=== PATIENT | male | born 1955 | race Caucasian/White ===

== ENCOUNTER 2025-09-22 06:05 | Observation (INO) ==
[2025-09-22 06:40] LABS: Hematocrit (blood only) 46.0 % (42.0-52.0); Hemoglobin 15.9 g/dL (14.0-18.0); Immature Granulocytes # (auto) 0.03 K/uL (0.01-0.20); Immature Granulocytes % (auto) 0.4 %; Mean Corpuscular Hemoglobin 31.7 pg (25.0-34.0); Mean Corpuscular Volume 91.8 fL (80.0-100.0); Platelet Count 235 K/uL (130-400); RDW Standard Deviation 46.2 fL (36.4-46.3); Red Blood Count 5.01 M/uL (4.70-6.10); White Blood Count 7.50 K/ul (4.8-10.8)
[2025-09-22 07:05] LABS: Alanine Aminotransferase 18.0 U/L (7-52); Albumin Globulin Ratio 1.4 (0.9-2); Albumin Level 4.5 gm/dl (3.4-5.0); Alkaline Phosphatase 60.0 U/L (34-104); Anion Gap 9.0 (3-11); Bilirubin,Total 0.6 mg/dl (0.2-1.0); Blood Urea Nitrogen 24.0 mg/dl (6-23); Calcium 9.1 mg/dl (8.6-10.3); Carbon Dioxide 30.0 mmol/L (21-32); Chloride 100.0 mmol/L (98-107); Creatinine Clr Calc Pharmacy 77.7 ml/min; Globulin 3.2 gm/dl (2.5-4.0); Glucose 106.0 mg/dl (70-99(Fasting)); Lipase 25.0 U/L (11-82); Potassium 4.3 mmol/L (3.5-5.1); Sodium 139.0 mmol/L (136-145); Total Protein 7.7 gm/dl (6.0-8.3)
--- NOTE | 2025-09-22 07:10 | Emergency Department Note ---
History of Present Illness General Chief complaint: Hypertension Stated complaint: HIGH BP 143/70, PALPITATIONS - HX AORTUC ANEURYSM Time Seen by Provider: 09/22/25 06:56 History of Present Illness This is a 70-year-old male who presents to the emergency department via private vehicle with complaints of "soreness in upper back". The patient states that he was diagnosed with diverticulitis several weeks ago and underwent CT scan of the abdomen/pelvis 2 weeks ago. He was placed on prednisone and is currently taking the medicine, last dose was yesterday. However, the patient notes that for just under a week now has had soreness in the upper back and presents today as he notes that he was informed by his lead nuclear medicine technologist in the past that he should be seen with any back pain noting history of aneurysm. Patient believes the aneurysm is in the chest area. He denies any central chest pain. No dyspnea. No exertional symptoms. He does note that the upper back pain is made worse by physical movements of the arms/muscles of the back and is better with rest. No preceding or current illness other than the diverticulitis which has resolved. The patient does state that while on the prednisone he did have some heart racing sensation. He checked his blood pressure yesterday and it was elevated. Home Medications Medication Instructions Recorded Confirmed Type atorvastatin 40 mg tablet 40 mg PO DAILY 09/22/25 09/22/25 History lisinopril 2.5 mg tablet 2.5 mg PO DAILY 09/22/25 09/22/25 History metformin 500 mg tablet,extended 500 mg PO DAILY 09/22/25 09/22/25 History release 24 hr metoprolol succinate 25 mg 25 mg PO DAILY 09/22/25 09/22/25 History tablet,extended release 24 hr prednisone 20 mg tablet 40 mg PO QAM 09/22/25 09/22/25 History Allergies Allergy/AdvReac Type Severity Reaction Status Date / Time No Known Allergies Allergy Unknown Unverified 05/25/18 01:56 Past Med/Surg History Problem List (Updated 09/22/25 @ 09:09 by Vladimir Ramon PA-C) Aneurysm, thoracic aortic (Acute) Upper back pain (Acute) Neck pain (Acute) Pharyngitis (Acute) Chest pain (Acute) Thoracic aortic aneurysm (Acute) Family History (Updated 07/08/18 @ 03:22 by Keven Ivy) Other No significant family history Social History (Updated 07/08/18 @ 03:46 by Keven Ivy) Smoking Status: Former smoker Preferred Language: Bulgarian Visual Impairment: No Limitations Hearing Ability: Normal Feels Safe at Home: Yes Review of Systems A total of 10 systems reviewed and were otherwise negative Physical Exam Vital Signs Vital Signs - 24 hr 09/22/25 06:09 09/22/25 06:17 09/22/25 07:42 Temperature 36.8 C Temperature Source Temporal Artery Scan Pulse Rate 66 58 L Pulse Rate [Apical] 69 Pulse Rhythm [Apical] Regular Respiratory Rate 20 20 Respiratory Effort / Characteristics Non-Labored Spontaneous Respiratory Depth Normal Normal Blood Pressure 168/88 H Blood Pressure [Right Arm] 162/88 H Blood Pressure Mean 114 Blood Pressure Mean [Right Arm] 112 Pulse Oximetry 95 95 Oxygen Delivery Method Room Air Room Air Sepsis Recent Fever Within 48 Hours No Sepsis New/Unexplained Change in Mental Status N/A Sepsis Action Taken by Nursing No Action Required 09/22/25 07:44 09/22/25 08:35 09/22/25 10:34 Temperature Temperature Source Pulse Rate Pulse Rate [Apical] 59 L 59 L 57 L Pulse Rhythm [Apical] Respiratory Rate 18 20 20 Respiratory Effort / Characteristics Non-Labored Respiratory Depth Normal Normal Normal Blood Pressure Blood Pressure [Right Arm] 148/89 H 129/81 129/81 Blood Pressure Mean Blood Pressure Mean [Right Arm] 108 97 97 Pulse Oximetry 94 95 95 Oxygen Delivery Method Room Air Room Air Room Air Sepsis Recent Fever Within 48 Hours Sepsis New/Unexplained Change in Mental Status Sepsis Action Taken by Nursing VITAL SIGNS - Vital signs and nursing notes were reviewed. Hypertensive, otherwise stable and afebrile. GENERAL -70-year-old male appearing his stated age who is in no acute distress. Communicates well with provider and answers questions appropriately. SKIN - Without rashes. No meningeal or petechial rash. No herpetic lesions. The skin overlying the back is unremarkable. HEAD - NC/AT. NECK - Neck with FROM.No nuchal rigidity. LUNGS - CTA CARDIAC - RRR ABDOMEN - Abdominal contour normal without pulsations or visible masses. BS normoactive all four quadrants. No tenderness, palpable masses, hepatosplenomegaly, or ascites noted. EXTREMITIES - No clubbing or peripheral cyanosis. No pretibial edema present. Pulses wnl bilat. +5/5 strength noted in UE/LE bilaterally. NEUROLOGIC - Cranial nerves II through XII grossly intact. PSYCH -alert, oriented and pleasant on exam Course Administered Medications Discontinued Medications Ioversol (Optiray 320 125ml) 120 ml IV ONCE ONE Stop: 09/22/25 07:58 Last Admin: 09/22/25 07:57 Dose: 120 ml Documented By: MERVIN Medical Decision Making Laboratory Data 09/22/25 06:19 09/22/25 06:19 Lab Results 09/22/25 Range/Units 06:19 WBC 7.50 (4.8-10.8) K/ul RBC 5.01 (4.70-6.10) M/uL Hgb 15.9 (14.0-18.0) g/dL Hct 46.0 (42.0-52.0) % MCV 91.8 (80.0-100.0) fL MCH 31.7 (25.0-34.0) pg MCHC 34.6 (32.0-36.0) g/dL RDW Std Deviation 46.2 (36.4-46.3) fL RDW Coeff of Tom 13.5 (11.5-14.5) % Plt Count 235 (130-400) K/uL MPV 11.3 (9.4-12.4) fL Immature Gran % (Auto) 0.4 % Neut % (Auto) 67.6 % Lymph % (Auto) 17.6 % [place] % (Auto) 8.9 % Eos % (Auto) 4.8 % Baso % (Auto) 0.7 % Neut # (Auto) 5.07 (1.40-6.50) K/uL Lymph # (Auto) 1.32 (1.20-3.40) K/uL [place] # (Auto) 0.67 H (0.11-0.59) K/uL Eos # (Auto) 0.36 (0.00-0.50) K/uL Baso # (Auto) 0.05 (0.00-0.20) K/uL Immature Gran # (Auto) 0.03 (0.01-0.20) K/uL D-Dimer 690 H* (0-500) ug/L FEU Sodium 139 (136-145) mmol/L Potassium 4.3 (3.5-5.1) mmol/L Chloride 100 (98-107) mmol/L Carbon Dioxide 30 (21-32) mmol/L Anion Gap 9 (3-11) BUN 24 H (6-23) mg/dl Creatinine 1.00 (0.6-1.4) mg/dl Est Cr Clr Drug Dosing 77.7 ml/min eGFR 81.47 BUN/Creatinine Ratio 24.0 H (10-20) Glucose 106 H (70-99(Fasting)) mg/dl Calcium 9.1 (8.6-10.3) mg/dl Total Bilirubin 0.6 (0.2-1.0) mg/dl AST 16 (13-39) U/L ALT 18 (7-52) U/L Alkaline Phosphatase 60 (34-104) U/L Troponin I High Sens 10.5 (0-20) pg/ml Total Protein 7.7 (6.0-8.3) gm/dl Albumin 4.5 (3.4-5.0) gm/dl Globulin 3.2 (2.5-4.0) gm/dl Albumin/Globulin Ratio 1.4 (0.9-2) Lipase 25 (11-82) U/L Imaging Data Radiologist's Impression: Abdomen/Pelvis CTA 09/22/25 06:20 CT angio chest dissec wo/w con, CT angio abdomen pelvis w con CLINICAL HISTORY: upper back pain, hx aneurysm COMPARISON STUDY: None FINDINGS: Vascular findings: There is an ascending thoracic aortic aneurysm measuring 4.8 cm maximum diameter, narrowing smoothly to caliber of 3.0 cm at the proximal descending thoracic aorta and 2.8 cm at the hiatus. There are mild diffuse atherosclerotic calcifications at the aorta. There is no thoracic or abdominal aortic dissection. There is no abdominal aortic aneurysm. Visualized great vessels are widely patent. Celiac, superior mesenteric, bilateral renal, and inferior mesenteric arteries are patent. Visualized arterial outflow shows no significant narrowing. CHEST: There is no pulmonary consolidation or pleural effusion. No pneumothorax. No pulmonary embolism. No enlarged adenopathy. No pericardial effusion. ABDOMEN: Liver, gallbladder, spleen, pancreas, and adrenal glands are unremarkable. Kidneys show no hydronephrosis. There are a few tiny cysts at the kidneys. Pelvis: Prostate is mildly enlarged. Urinary bladder is nondistended. There is sigmoid diverticulosis. No acute diverticulitis. No bowel dilation or obstruction. No free fluid or free air. No enlarged adenopathy. Osseous structures: There is lower lumbar degenerative disc disease. There are mild degenerative changes at both hips. No acute osseous findings seen. IMPRESSION: 1. No evidence of thoracic or abdominal aortic dissection. 2. Mild ascending thoracic aortic aneurysm. 3. No acute findings seen. 4. Otherwise as described. ACT 112: Negative or not required by law. Electronically signed by: Jefferson Maharaj M.D. 09/22/2025 8:29 AM Chest X-Ray 09/22/25 06:20 EXAM: XR chest 1V portable CLINICAL HISTORY: Chest pain, nonspecific TECHNIQUE: An X-ray image of the chest is obtained in AP projection. COMPARISON: No prior studies are available for comparison. FINDINGS: Pulmonary Parenchyma: Slightly prominent bronchovascular markings in the lung weldon involving the suprahilar region as well, likely suggests mild congestive changes. No evidence of consolidation, collapse, No pulmonary nodules are identified. No evidence of pleural effusion or pleural thickening. Heart and Mediastinum: Possbile cardiomegaly. No mediastinal masses. No hilar or mediastinal lymphadenopathy. Bony Thorax: Bony thorax appears intact without fractures or deformities. Soft Tissues: Soft tissues overlying the chest wall are unremarkable. IMPRESSION: 1. Mild to minimal cardiomegaly. 2. Slightly prominent bronchovascular markings in the lung weldon involving the suprahilar region as well, likely suggests mild congestive changes. 3. No pleural effusion seen. 4. Clinical correlation advised. Electronically signed by Giovanny Child 09-22-2025 07:33 AM Chest CTA 09/22/25 07:18 CT angio chest dissec wo/w con, CT angio abdomen pelvis w con CLINICAL HISTORY: upper back pain, hx aneurysm COMPARISON STUDY: None FINDINGS: Vascular findings: There is an ascending thoracic aortic aneurysm measuring 4.8 cm maximum diameter, narrowing smoothly to caliber of 3.0 cm at the proximal descending thoracic aorta and 2.8 cm at the hiatus. There are mild diffuse atherosclerotic calcifications at the aorta. There is no thoracic or abdominal aortic dissection. There is no abdominal aortic aneurysm. Visualized great vessels are widely patent. Celiac, superior mesenteric, bilateral renal, and inferior mesenteric arteries are patent. Visualized arterial outflow shows no significant narrowing. CHEST: There is no pulmonary consolidation or pleural effusion. No pneumothorax. No pulmonary embolism. No enlarged adenopathy. No pericardial effusion. ABDOMEN: Liver, gallbladder, spleen, pancreas, and adrenal glands are unremarkable. Kidneys show no hydronephrosis. There are a few tiny cysts at the kidneys. Pelvis: Prostate is mildly enlarged. Urinary bladder is nondistended. There is sigmoid diverticulosis. No acute diverticulitis. No bowel dilation or obstruction. No free fluid or free air. No enlarged adenopathy. Osseous structures: There is lower lumbar degenerative disc disease. There are mild degenerative changes at both hips. No acute osseous findings seen. IMPRESSION: 1. No evidence of thoracic or abdominal aortic dissection. 2. Mild ascending thoracic aortic aneurysm. 3. No acute findings seen. 4. Otherwise as described. ACT 112: Negative or not required by law. Electronically signed by: Jefferson Maharaj M.D. 09/22/2025 8:29 AM MDM Narrative Patient was seen and evaluated as above in room B04b. Review was performed of triage nursing notes and vital signs. I did review pertinent previous visits and patient history. After obtaining a thorough history and physical examination the above work up was performed. Patient presents to us today with upper back soreness and palpitations/pounding in the chest sensation. No chest pain. Well-appearing and nontoxic on assessment. Stable vital signs other than hypertension noted. IV access was established per labs were drawn. EKG: Per my interpretation dated 09/22/2025 at 0615, normal sinus rhythm at a rate of 60 bpm. QTc 408. QRS 112. No ST elevation. T wave inversions noted. The previous EKG for comparison is dated December 19, 2003. Plan is to repeat EKG here. Repeat EKG timestamp 0902 per my interpretation reveals sinus bradycardia at a rate of 58 bpm. QTc 435. QRS 116. No ST elevation. This is a similar rhythm tracing compared to 0615 EKG today. Labs reveal no leukocytosis or concerning anemia. D-dimer 690. No evidence of emergent kidney or liver failure. Troponin x 1 negative. Lipase normal. Chest x-ray as above. He does have a known ascending thoracic aortic aneurysm. CT angio study here of the chest, abdomen/pelvis performed. As above. No dissection. 4.8 cm aneurysm noted. As a comparison, I was able to review previous imaging as documented at [employer] dated 02/28/24. This showed aneurysmal dilatation of the ascending thoracic aorta measuring up to 4.8 cm at that time was unchanged compared to previous. I was also able to review an echocardiogram performed on 01/22/2025 which showed a moderately dilated ascending aorta at 4.4 cm by ultrasound. Presentation is not felt to be related to the aneurysm at this time. The patient does have stable EKG here x 2 but new findings compared to most recent that we able to find in the EMR which was December 19, 2003. [id number] spoke with Dr. Good, cardiology. We discussed options. I discussed options with the patient. Ultimately we decided to proceed with further evaluation and management in the inpatient setting. Case discussed with the hospitalist service. Please refer to further documentation regarding his stay. In the evaluation and treatment of this patient, the following differential diagnoses were considered: DE, ASC, Dysrhythmia, Angina, Mediastinitis, GERD, Esophagitis, PE, Pneumonia, Bronchitis, Costochondritis, Rib Fracture, Zoster, among others. Impression & Plan Upper back pain, Aneurysm, thoracic aortic Discharge Plan Visit Data Chief Complaint: Hypertension Stated Complaint: HIGH BP 143/70, PALPITATIONS - HX AORTUC ANEURYSM ED Provider: Leonid Gray ED Midlevel Provider: Vladimir Ramon Discharge Problem: Upper back pain, Aneurysm, thoracic aortic Patient Disposition: Admitted As Inpatient Condition: Good Forms Stand Alone Forms: My [facility], Important Visit Information Prescriptions Prescriptions: No Action prednisone 20 mg tablet 40 mg PO QAM Patient Comments: prescribed for 7 days, last dose 09/21 metoprolol succinate 25 mg tablet extended release 24 hr 25 mg PO DAILY metformin 500 mg tablet extended release 24 hr 500 mg PO DAILY lisinopril 2.5 mg tablet 2.5 mg PO DAILY atorvastatin 40 mg tablet 40 mg PO DAILY Referrals Referrals: Mirza Jones DO [Primary Care Provider] -
--- NOTE | 2025-09-22 07:33 | XRay Report ---
EXAM: XR chest 1V portable CLINICAL HISTORY: Chest pain, nonspecific TECHNIQUE: An X-ray image of the chest is obtained in AP projection. COMPARISON: No prior studies are available for comparison. FINDINGS: Pulmonary Parenchyma: Slightly prominent bronchovascular markings in the lung weldon involving the suprahilar region as well, likely suggests mild congestive changes. No evidence of consolidation, collapse, No pulmonary nodules are identified. No evidence of pleural effusion or pleural thickening. Heart and Mediastinum: Possbile cardiomegaly. No mediastinal masses. No hilar or mediastinal lymphadenopathy. Bony Thorax: Bony thorax appears intact without fractures or deformities. Soft Tissues: Soft tissues overlying the chest wall are unremarkable. IMPRESSION: 1. Mild to minimal cardiomegaly. 2. Slightly prominent bronchovascular markings in the lung weldon involving the suprahilar region as well, likely suggests mild congestive changes. 3. No pleural effusion seen. 4. Clinical correlation advised. Electronically signed by Giovanny Child 09-22-2025 07:33 AM
[2025-09-22] MEDS: OPTIRAY 320 125ml IV ONE (07:57)
--- NOTE | 2025-09-22 08:31 | CT Scan Report ---
CT angio chest dissec wo/w con, CT angio abdomen pelvis w con CLINICAL HISTORY: upper back pain, hx aneurysm COMPARISON STUDY: None FINDINGS: Vascular findings: There is an ascending thoracic aortic aneurysm measuring 4.8 cm maximum diameter, narrowing smoothly to caliber of 3.0 cm at the proximal descending thoracic aorta and 2.8 c m at the hiatus. There are mild diffuse atherosclerotic calcifications at the aorta. There is no thor acic or abdominal aortic dissection. There is no abdominal aortic aneurysm. Visualized great vessels are widely patent. Celiac, superior mesenteric, bilateral renal, and inferior mesenteric arteries are patent. Visualized arterial outflow shows no significant narrowing. CHEST: There is no pulmonary consolidation or pleural effusion. No pneumothorax. No pulmonary embolis m. No enlarged adenopathy. No pericardial effusion. ABDOMEN: Liver, gallbladder, spleen, pancreas, and adrenal glands are unremarkable. Kidneys show no h ydronephrosis. There are a few tiny cysts at the kidneys. Pelvis: Prostate is mildly enlarged. Urinary bladder is nondistended. There is sigmoid diverticulosis . No acute diverticulitis. No bowel dilation or obstruction. No free fluid or free air. No enlarged a denopathy. Osseous structures: There is lower lumbar degenerative disc disease. There are mild degenerative ghosh ges at both hips. No acute osseous findings seen. IMPRESSION: 1. No evidence of thoracic or abdominal aortic dissection. 2. Mild ascending thoracic aortic aneurysm. 3. No acute findings seen. 4. Otherwise as described. ACT 112: Negative or not required by law. Electronically signed by: Jefferson Maharaj M.D. 09/22/2025 8:29 AM
--- NOTE | 2025-09-22 09:10 | Emergency Department Note ---
ED Visit Note I had a meaningful discussion with the PA regarding patient. Though I did not see the patient face to face, I personally approved and/or made the documented management plan and acknowledge risk and complications. .
--- NOTE | 2025-09-22 11:23 | History & Physical Report ---
<Statement entered by Jarett French, DO - 09/22/25 14:43> patient seen and examined Feeling well no complaints at this time CTA reviewed, no PE Continue telemetry tonight Appreciate cardio input Anticipate DC home tomorrow Date of Service September 22, 2025 Assessment & Plan (1) Palpitations: (2) Aneurysm of ascending aorta without rupture: Plan Patient is a 70y/o M with PMHx significant for thyroid nodule, DMII, HLD, pulmonary emphysema, aneurysm of ascending aorta without rupture, HTN, CAD, aortic valve regurgitation, diverticulosis, osteoarthritis, mild cerebral atrophy and history of TIA who presented to the ED with c/o heart palpitations and upper back pain. Known history of an aneurysm of the ascending aorta. Follows with [facility] cardiothoracic surgery for monitoring. CT chest without contrast in February 2024 measuring 4.6cm maximum diameter, previously was 4.3cm maximum diameter in April 2015. Under observation. Last seen by cardiothoracic surgery in September 2024. Scheduled for repeat chest CT imaging in February 2026. Palpitations Ascending thoracic aortic aneurysm without rupture POA Telemetry benign, HS-troponin x 2 negative. EKG with indeterminate T wave inversions in the lateral leads, questionable L anterior fascicular block (appears new). Pt without chest pain. Repeat EKG in AM, check updated TTE. Prior TTE, 12/2024: EF 55-60%, normal LV wall motion, mild AVR, moderately dilated ascending aorta (4.4cm). D-dimer elevated however chest CTA negative for PE. Abd/pelv and chest CTA imaging without evidence of thoracic or abdominal aortic dissection. -Ascending thoracic aortic aneurysm measuring 4.8cm maximum diameter (change of 2mm since February 2024). HR and BP currently well-controlled. Will monitor on telemetry overnight, follow troponin trend. Reevaluate in AM. Check TSH with reflex T4. Cardiology onboard, plan discussed with cardiology LEILA in ED: -If remains stable through tomorrow, could then consider OP stress testing which cardiology can assist with coordinating. If pt is having significant palpitation episodes and/or any acute changes overnight, will then consider inpatient stress testing on Wednesday (09/24) as this cannot be completed over the weekend. Renal cysts Noted on abd/pelv CTA: There are a few tiny cysts at the kidneys. Renal function stable, continue to monitor. Recommend routine (nonurgent) OP renal US for further eval -- can be arranged with PCP. DMII A1c 6.6% 1 mo ago, well-controlled on metformin. SSI protocol while inpatient. Monitor BSG checks ACHS. HTN Strive for goal BP <140/90 in setting of known ascending thoracic AA. Continue BB, lisinopril with routine BP checks. HLD, CAD Continue statin therapy. Update fasting lipid panel in AM. DVT Prophylaxis: SCDs/TEDs, SQ Lovenox Code Status: FULL CODE Disposition: Observation in med/telemetry Patient seen in collaboration with Dr. French. Please see addendum. I spent a total of 60 minutes coordinating, documenting, and providing care for this patient excluding time spent in the performance of separately billed services or time spent by another provider/QHP. This included personally reviewing all current laboratories and imaging studies, medical reconciliation, outpatient chart review and discussion with specialists. History of Present Illness Chief Complaint: Palpitations, upper back pain Primary Care Provider: Mirza Jones DO Patient is a 70y/o M with PMHx significant for thyroid nodule, DMII, HLD, pulmonary emphysema, aneurysm of ascending aorta without rupture, HTN, CAD, aortic valve regurgitation, diverticulosis, osteoarthritis, mild cerebral atrophy and history of TIA who presented to the ED with c/o heart palpitations and upper back pain. Recently started on oral prednisone course for a suspected herniated disc in his back by his PCP. Started to develop palpitations after starting the prednisone. Discontinued the prednisone on because of this. Only took about 3 or 4 days' worth of prednisone. Has still been experiencing heart palpitations several times a day, primarily at rest, since stopping the prednisone. No chest pain or SOB with this. Also noticed that his BP was mildly elevated over the past few days. No recent changes to antiHTN regimen. Did not take any of his medications this morning. Has still be experiencing some mild upper back pain, described as achy and dull. Known history of an aneurysm of the ascending aorta. Follows with [facility] cardiothoracic surgery for monitoring. CT chest without contrast in February 2024 measuring 4.6cm maximum diameter, previously was 4.3cm maximum diameter in April 2015. Under observation. Last seen by cardiothoracic surgery in September 2024. Scheduled for repeat chest CT in February 2026. Allergies Allergy/AdvReac Type Severity Reaction Status Date / Time No Known Allergies Allergy Unknown Unverified 05/25/18 01:56 Home Medications Medication Instructions Recorded Confirmed Type atorvastatin 40 mg tablet 40 mg PO DAILY 09/22/25 09/22/25 History lisinopril 2.5 mg tablet 2.5 mg PO DAILY 09/22/25 09/22/25 History metformin 500 mg tablet,extended 500 mg PO DAILY 09/22/25 09/22/25 History release 24 hr metoprolol succinate 25 mg 25 mg PO DAILY 09/22/25 09/22/25 History tablet,extended release 24 hr prednisone 20 mg tablet 40 mg PO QAM 09/22/25 09/22/25 History Past Med/Surg History Problem List Aneurysm of ascending aorta without rupture Palpitations Aneurysm, thoracic aortic (Acute) Upper back pain (Acute) Neck pain (Acute) Pharyngitis (Acute) Chest pain (Acute) Thoracic aortic aneurysm (Acute) Family History Other No significant family history Social History Smoking Status: Former smoker Preferred Language: Kyrgyz Visual Impairment: No Limitations Hearing Ability: Normal Feels Safe at Home: Yes Review of Systems Review of Systems: At least ten systems reviewed and negative, except as noted in the HPI. Physical Exam Physical Exam: General: WD/WN, M, NAD, sitting up in bed, A&Ox3 HEENT: Normocephalic, atraumatic, moist mucous membranes Respiratory: Normal respiratory effort, CTAB Cardiovascular: RRR, no BLE edema Abdomen/GI: Active bowel sounds, soft, nontender to palpation in all quadrants Extremities/Musculoskeletal: No cyanosis or clubbing, extremities motor strength intact, moves all extremities Neurologic: No overt focal deficits, CN's II-XI not formally tested but appear grossly intact bilaterally Results & Data Results & Data Vital Signs (Past 12 Hours) Vital Signs Temp Pulse Pulse Resp BP BP Pulse Ox 09/22/25 10:34 57 L 20 129/81 95 09/22/25 08:35 59 L 20 129/81 95 09/22/25 07:44 59 L 18 148/89 H 94 09/22/25 07:42 58 L 09/22/25 06:17 69 20 162/88 H 95 09/22/25 06:09 36.8 C 66 20 168/88 H 95 O2 Del Method 09/22/25 10:34 Room Air 09/22/25 08:35 Room Air 09/22/25 07:44 Room Air 09/22/25 07:42 09/22/25 06:17 Room Air 09/22/25 06:09 Room Air Laboratory Results Short CBC 09/22/25 Range/Units 06:19 WBC 7.50 (4.8-10.8) K/ul Hgb 15.9 (14.0-18.0) g/dL Hct 46.0 (42.0-52.0) % Plt Count 235 (130-400) K/uL BMP 09/22/25 06:19 Sodium 139 Potassium 4.3 Chloride 100 Carbon Dioxide 30 BUN 24 H Creatinine 1.00 Glucose 106 H Calcium 9.1 Liver Function 09/22/25 Range/Units 06:19 Total Bilirubin 0.6 (0.2-1.0) mg/dl AST 16 (13-39) U/L ALT 18 (7-52) U/L Alkaline Phosphatase 60 (34-104) U/L Albumin 4.5 (3.4-5.0) gm/dl Diagnostic Findings Abdomen/Pelvis CTA 09/22/25 06:20 CT angio chest dissec wo/w con, CT angio abdomen pelvis w con CLINICAL HISTORY: upper back pain, hx aneurysm COMPARISON STUDY: None FINDINGS: Vascular findings: There is an ascending thoracic aortic aneurysm measuring 4.8 cm maximum diameter, narrowing smoothly to caliber of 3.0 cm at the proximal descending thoracic aorta and 2.8 cm at the hiatus. There are mild diffuse atherosclerotic calcifications at the aorta. There is no thoracic or abdominal aortic dissection. There is no abdominal aortic aneurysm. Visualized great vessels are widely patent. Celiac, superior mesenteric, bilateral renal, and inferior mesenteric arteries are patent. Visualized arterial outflow shows no significant narrowing. CHEST: There is no pulmonary consolidation or pleural effusion. No pneumothorax. No pulmonary embolism. No enlarged adenopathy. No pericardial effusion. ABDOMEN: Liver, gallbladder, spleen, pancreas, and adrenal glands are unremarkable. Kidneys show no hydronephrosis. There are a few tiny cysts at the kidneys. Pelvis: Prostate is mildly enlarged. Urinary bladder is nondistended. There is sigmoid diverticulosis. No acute diverticulitis. No bowel dilation or obstruction. No free fluid or free air. No enlarged adenopathy. Osseous structures: There is lower lumbar degenerative disc disease. There are mild degenerative changes at both hips. No acute osseous findings seen. IMPRESSION: 1. No evidence of thoracic or abdominal aortic dissection. 2. Mild ascending thoracic aortic aneurysm. 3. No acute findings seen. 4. Otherwise as described. ACT 112: Negative or not required by law. Electronically signed by: Jefferson Maharaj M.D. 09/22/2025 8:29 AM Chest X-Ray 09/22/25 06:20 EXAM: XR chest 1V portable CLINICAL HISTORY: Chest pain, nonspecific TECHNIQUE: An X-ray image of the chest is obtained in AP projection. COMPARISON: No prior studies are available for comparison. FINDINGS: Pulmonary Parenchyma: Slightly prominent bronchovascular markings in the lung weldon involving the suprahilar region as well, likely suggests mild congestive changes. No evidence of consolidation, collapse, No pulmonary nodules are identified. No evidence of pleural effusion or pleural thickening. Heart and Mediastinum: Possbile cardiomegaly. No mediastinal masses. No hilar or mediastinal lymphadenopathy. Bony Thorax: Bony thorax appears intact without fractures or deformities. Soft Tissues: Soft tissues overlying the chest wall are unremarkable. IMPRESSION: 1. Mild to minimal cardiomegaly. 2. Slightly prominent bronchovascular markings in the lung weldon involving the suprahilar region as well, likely suggests mild congestive changes. 3. No pleural effusion seen. 4. Clinical correlation advised. Electronically signed by Giovanny Child 09-22-2025 07:33 AM Chest CTA 09/22/25 07:18 CT angio chest dissec wo/w con, CT angio abdomen pelvis w con CLINICAL HISTORY: upper back pain, hx aneurysm COMPARISON STUDY: None FINDINGS: Vascular findings: There is an ascending thoracic aortic aneurysm measuring 4.8 cm maximum diameter, narrowing smoothly to caliber of 3.0 cm at the proximal descending thoracic aorta and 2.8 cm at the hiatus. There are mild diffuse atherosclerotic calcifications at the aorta. There is no thoracic or abdominal aortic dissection. There is no abdominal aortic aneurysm. Visualized great vessels are widely patent. Celiac, superior mesenteric, bilateral renal, and inferior mesenteric arteries are patent. Visualized arterial outflow shows no significant narrowing. CHEST: There is no pulmonary consolidation or pleural effusion. No pneumothorax. No pulmonary embolism. No enlarged adenopathy. No pericardial effusion. ABDOMEN: Liver, gallbladder, spleen, pancreas, and adrenal glands are unremarkable. Kidneys show no hydronephrosis. There are a few tiny cysts at the kidneys. Pelvis: Prostate is mildly enlarged. Urinary bladder is nondistended. There is sigmoid diverticulosis. No acute diverticulitis. No bowel dilation or obstruction. No free fluid or free air. No enlarged adenopathy. Osseous structures: There is lower lumbar degenerative disc disease. There are mild degenerative changes at both hips. No acute osseous findings seen. IMPRESSION: 1. No evidence of thoracic or abdominal aortic dissection. 2. Mild ascending thoracic aortic aneurysm. 3. No acute findings seen. 4. Otherwise as described. ACT 112: Negative or not required by law. Electronically signed by: Jefferson Maharaj M.D. 09/22/2025 8:29 AM Medications Administered Discontinued Medications Ioversol (Optiray 320 125ml) 120 ml IV ONCE ONE Stop: 09/22/25 07:58 Last Admin: 09/22/25 07:57 Dose: 120 ml Documented By: MERVIN
[2025-09-22] MEDS ORDERED: DEXTROSE 50% 50 ML SYRINGE IV PRN (11:33)
[2025-09-22] MEDS ORDERED: GLUCAGON FOR INJ 1 MG VIAL SQ PRN (11:33)
[2025-09-22] MEDS ORDERED: GLUCOSE 40% GEL 15 GM TUBE PO PRN (11:33)
[2025-09-22] MEDS ORDERED: GLUCOSE 10 TAB/TUBE PO PRN (11:33)
[2025-09-22] MEDS ORDERED: CARBOHYDRATES FOR HYPOGLYCEMIA PO PRN (11:33)
--- NOTE | 2025-09-22 13:18 | Cardiology Consultation ---
Date of Consultation September 22, 2025 Assessment & Plan (1) Aneurysm, thoracic aortic: (2) Palpitations: (3) Upper back pain: Plan -HR and BP currently well controlled -troponins have been negative -echo completed 12/2024 with normal EF and no valvular disease, no need to repeat at this time -CT scan today indicated stable measurements of his Aortic Aneurysm -cannot complete stress testing today - At this juncture the patient's symptoms have resolved - Continue atorvastatin, lisinopril, Toprol - Can monitor on telemetry overnight and reevaluate tomorrow - If blood pressure and heart rate remain well-controlled without any acute changes could consider outpatient stress testing which I can assist with coordinating -if he is still having significant episodes or any acute changes overnight could also consider continuing to monitor him through the weekend and completing an inpatient stress test on Wednesday - I discussed my recommendations with the attending service and the patient who are agreeable with plan Case discussed with Dr. Good. Please see attestation for additional recommendations. ZAIRE Rockwell Department of Cardiology, [facility] This chart was completed in part utilizing Speech Voice Recognition Software. Grammatical errors, random word insertions, pronoun errors, and incomplete sentences are an occasional consequence of this system due to software limitations, ambient noise, and hardware issues. Any formal questions or jeffrey rns about the content, text, or information contained within the body of this dictation should be directly addressed to the provider for clarification. Supervising Physician Co-Signing Physician Notes Patient seen and examined. Past medical history, surgical history, social history and family history have been reviewed. The medical record and all the above studies have been reviewed. Case DW LEILA including management. Patient had high salt load in his food intake the past few days including items such as ham. Patient was found to be hypertensive on presentation IMP: HTN - uncontrolled -> better Palpitations Atypical CP - AL R/O Thoracic aortic aneurysm Upper back pain Recommendations: continue telemetry monitoring adjust anti-HTN meds keeping systolic BP between 100-140 mmHg DVT prophylaxis salt restriction counseling Pharmacological nuclear stress test DW patient -> will schedule as per clinical course -> he agrees History of Present Illness Reason for Consultation: Palpitations, Back Pain Requesting Physician: Hospitalist Attending Physician: Dr. French History of Present Illness 70-year-old male seen in consultation today in regard to back pain and palpitations. A few weeks ago he was diagnosed with diverticulitis and underwent outpatient management with prednisone. Also was told by his PCP that he likely had some back issues that the prednisone might help as well. He finished the prednisone just under 2 days ago and noted that over the course of the last week he has been noticing some palpitations occurring daily. He is not sure what causes them to come on or what alleviates them but feels that they are occurring several times a day. Was not able to elaborate further but feels his heart beating during these episodes. He did notice yesterday when he had a family member check his blood pressure was mildly elevated in the 160s but on recheck it had come down to the 130s.. At home he used an automatic blood pressure cuff to check his blood pressure this morning and felt that it was still elevated in the 140s and subsequently came to the ER for further ev aluation.. Of note the blood pressure he checked this morning was prior to taking any of his medications, since he was coming to the ER he was not sure he should take anything. He has previously seen a cardiothoracic surgeon in regard to a thoracic aortic aneurysm and was told anytime he has severe back pain he should go to the ER for further evaluation to make sure it is not leaking. Allergies Allergy/AdvReac Type Severity Reaction Status Date / Time No Known Allergies Allergy Unknown Unverified 05/25/18 01:56 Home Medications Medication Instructions Recorded Confirmed Type atorvastatin 40 mg tablet 40 mg PO DAILY 09/22/25 09/22/25 History lisinopril 2.5 mg tablet 2.5 mg PO DAILY 09/22/25 09/22/25 History metformin 500 mg tablet,extended 500 mg PO DAILY 09/22/25 09/22/25 History release 24 hr metoprolol succinate 25 mg 25 mg PO DAILY 09/22/25 09/22/25 History tablet,extended release 24 hr prednisone 20 mg tablet 40 mg PO QAM 09/22/25 09/22/25 History Patient History Family History Other No significant family history Social History Smoking Status: Former smoker Hx Alcohol Use: Yes Hx Substance Use: No Preferred Language: Frisian Communication Ability: Effective Visual Impairment: No Limitations Hearing Ability: Normal Shearing Supervisor Required: No Beliefs That Will Affect Care: None Current Living Situation: Alone Current Living Situation Comment: one story home Feels Safe at Home: Yes Assistive Devices: Glasses Review of Systems Review of Systems: All systems reviewed & are unremarkable except as noted in HPI & below Physical Exam Constitutional: WD/WN, vitals as above well developed and well nourished; not ill appearing Eyes: PERRL, conjunctivae normal, anicteric sclerae Neck: trachea midline, no thyromegaly Respiratory: normal respiratory effort, lungs clear to auscultation Cardiovascular: Rate/Rhythm: regular rate and regular rhythm Heart Sounds: normal S1 and normal S2; no murmur Vessels: no JVD Extremities: no edema Gastrointestinal (Abdomen): normal bowel sounds, soft, nontender, no hepatosplenomegaly Skin: no rashes, warm and dry Psychiatric: A+Ox3, euthymic affect Results & Data Vital Signs (Past 12 Hours) Vital Signs Temp Pulse Pulse Resp BP BP Pulse Ox 09/22/25 12:59 66 20 140/82 96 09/22/25 12:07 74 09/22/25 10:34 57 L 20 129/81 95 09/22/25 08:35 59 L 20 129/81 95 09/22/25 07:44 59 L 18 148/89 H 94 09/22/25 07:42 58 L 09/22/25 06:17 69 20 162/88 H 95 09/22/25 06:09 36.8 C 66 20 168/88 H 95 O2 Del Method 09/22/25 12:59 Room Air 09/22/25 12:07 09/22/25 10:34 Room Air 09/22/25 08:35 Room Air 09/22/25 07:44 Room Air 09/22/25 07:42 09/22/25 06:17 Room Air 09/22/25 06:09 Room Air Laboratory Results Cardiac Enzymes 09/22/25 09/22/25 Range/Units 06:19 10:53 AST 16 (13-39) U/L Troponin I High Sens 10.5 10.3 (0-20) pg/ml CBC 09/22/25 Range/Units 06:19 WBC 7.50 (4.8-10.8) K/ul RBC 5.01 (4.70-6.10) M/uL Hgb 15.9 (14.0-18.0) g/dL Hct 46.0 (42.0-52.0) % Plt Count 235 (130-400) K/uL Neut # (Auto) 5.07 (1.40-6.50) K/uL Lymph # (Auto) 1.32 (1.20-3.40) K/uL Grant # (Auto) 0.67 H (0.11-0.59) K/uL Eos # (Auto) 0.36 (0.00-0.50) K/uL Baso # (Auto) 0.05 (0.00-0.20) K/uL Comprehensive Metabolic Panel 09/22/25 Range/Units 06:19 Sodium 139 (136-145) mmol/L Potassium 4.3 (3.5-5.1) mmol/L Chloride 100 (98-107) mmol/L Carbon Dioxide 30 (21-32) mmol/L BUN 24 H (6-23) mg/dl Creatinine 1.00 (0.6-1.4) mg/dl Glucose 106 H (70-99(Fasting)) mg/dl Calcium 9.1 (8.6-10.3) mg/dl AST 16 (13-39) U/L ALT 18 (7-52) U/L Alkaline Phosphatase 60 (34-104) U/L Total Protein 7.7 (6.0-8.3) gm/dl Albumin 4.5 (3.4-5.0) gm/dl Intake and Output 09/21/25 09/22/25 09/22/25 22:59 06:59 14:59 Other: Weight 94.3 kg Diagnostic Findings Cardiac Enzymes 09/22/25 09/22/25 Range/Units 06:19 10:53 AST 16 (13-39) U/L Troponin I High Sens 10.5 10.3 (0-20) pg/ml CBC 09/22/25 Range/Units 06:19 WBC 7.50 (4.8-10.8) K/ul RBC 5.01 (4.70-6.10) M/uL Hgb 15.9 (14.0-18.0) g/dL Hct 46.0 (42.0-52.0) % Plt Count 235 (130-400) K/uL Neut # (Auto) 5.07 (1.40-6.50) K/uL Lymph # (Auto) 1.32 (1.20-3.40) K/uL Grant # (Auto) 0.67 H (0.11-0.59) K/uL Eos # (Auto) 0.36 (0.00-0.50) K/uL Baso # (Auto) 0.05 (0.00-0.20) K/uL Comprehensive Metabolic Panel 09/22/25 Range/Units 06:19 Sodium 139 (136-145) mmol/L Potassium 4.3 (3.5-5.1) mmol/L Chloride 100 (98-107) mmol/L Carbon Dioxide 30 (21-32) mmol/L BUN 24 H (6-23) mg/dl Creatinine 1.00 (0.6-1.4) mg/dl Glucose 106 H (70-99(Fasting)) mg/dl Calcium 9.1 (8.6-10.3) mg/dl AST 16 (13-39) U/L ALT 18 (7-52) U/L Alkaline Phosphatase 60 (34-104) U/L Total Protein 7.7 (6.0-8.3) gm/dl Albumin 4.5 (3.4-5.0) gm/dl Intake and Output 09/21/25 09/22/25 09/22/25 22:59 06:59 14:59 Other: Weight 94.3 kg Medications Administered Current Inpatient Medications Atorvastatin Calcium (Atorvastatin 40 Mg Tab) 40 mg PO DAILY GERM[facility] Stop: 10/23/25 08:59 Dextrose (Dextrose 50% 50 Ml Syringe) 25 - 50 ml IV UD PRN; Protocol PRN Reason: Hypoglycemia Protocol Stop: 10/22/25 11:32 Glucagon (Glucagon For Inj 1 Mg Vial) 1 mg SQ UD PRN; Protocol PRN Reason: Hypoglycemia Protocol Stop: 10/22/25 11:32 Glucose (Glucose 40% Gel 15 Gm Tube) 15 - 30 gm PO UD PRN; Protocol PRN Reason: Hypoglycemia Protocol Stop: 10/22/25 11:32 Glucose (Glucose 10 Tab/Tube) 4 - 8 tab PO UD PRN; Protocol PRN Reason: Hypoglycemia Protocol Stop: 10/22/25 11:32 Insulin Aspart (Insulin Aspart Per Unit Charge) 0 units SC ACHS GERMÁN Stop: 10/22/25 16:29 Lisinopril (Lisinopril 2.5 Mg Tab) 2.5 mg PO DAILY [facility] Stop: 10/23/25 08:59 Metoprolol Succinate (Metoprolol Succ 25mg Ext Rel Tab) 25 mg PO DAILY [facility] Stop: 10/23/25 08:59 Miscellaneous (Carbohydrates For Hypoglycemia ) 15 - 30 gm PO UD PRN PRN Reason: Hypoglycemia Protocol Stop: 10/22/25 11:32 PG Care Time/CCT Total # of Minutes Spent Total Time Spent with Patient: Total time spent is greater than 50% in coordination of care (as documented) at patient's floor/unit and/or counseling patient: [place] [address] IN/OBS CONSULT LVL 4,60M Patient Type New Medical Decision Making Moderate Complexity Diagnoses Aneurysm, thoracic aortic I71.20 Palpitations R00.2 Upper back pain M54.9
[2025-09-22] MEDS ORDERED: MAGNESIUM HYDROXIDE SUSP 30 ML UDC PO PRN (14:06)
[2025-09-22] MEDS ORDERED: POLYETHYLENE (MIRALAX) 17 GM PACK PO PRN (14:06)
[2025-09-22] MEDS ORDERED: ACETAMINOPHEN 325 MG TAB PO PRN (14:06)
[2025-09-22] MEDS ORDERED: ONDANSETRON INJ 2 MG/ML 2 ML VIAL IV PRN (14:06)
[2025-09-22] MEDS: METOPROLOL SUCC 25MG EXT REL TAB PO STA (14:08)
[2025-09-22] MEDS: ENOXAPARIN INJ 40 MG/0.4 ML SYR SQ SCH (14:29)
[2025-09-22] MEDS: INSULIN ASPART PER UNIT CHARGE SC SCH (17:40)
[2025-09-22 23:51] VITALS: RESP 16
[2025-09-23 03:59] VITALS: O2SAT 92
[2025-09-23 07:34] LABS: Hematocrit (blood only) 46.0 % (42.0-52.0); Hemoglobin 16.2 g/dL (14.0-18.0); Mean Corpuscular Hemoglobin 32.1 pg (25.0-34.0); Mean Corpuscular Volume 91.3 fL (80.0-100.0); Platelet Count 256 K/uL (130-400); RDW Standard Deviation 45.5 fL (36.4-46.3); Red Blood Count 5.04 M/uL (4.70-6.10); White Blood Count 6.45 K/ul (4.8-10.8)
[2025-09-23 07:53] LABS: Anion Gap 7.0 (3-11); Blood Urea Nitrogen 25.0 mg/dl (6-23); Calcium 9.2 mg/dl (8.6-10.3); Carbon Dioxide 29.0 mmol/L (21-32); Chloride 101.0 mmol/L (98-107); Cholesterol 196.0 mg/dl (0-200); Creatinine Clr Calc Pharmacy 78.6 ml/min; Glucose 110.0 mg/dl (70-99(Fasting)); HDL Cholesterol 53.0 mg/dl; Magnesium 2.3 mg/dl (1.7-2.4); Potassium 4.5 mmol/L (3.5-5.1); Sodium 137.0 mmol/L (136-145); Triglycerides 400.0 mg/dl (0-150)
[2025-09-23 08:13] VITALS: BP 113/76; PULSE 62; TEMP 97.9
[2025-09-23] MEDS: METOPROLOL SUCC 25MG EXT REL TAB PO SCH (08:40)
[2025-09-23] MEDS: ATORVASTATIN 40 MG TAB PO SCH (08:40)
--- NOTE | 2025-09-23 09:14 | Discharge Summary ---
Discharge Summary Date of Service September 23, 2025 Principal Dx & Hospital Course #1 = Principal Diagnosis (1) Palpitations: (2) Aneurysm of ascending aorta without rupture: Plan Patient is a 70y/o M with PMHx significant for thyroid nodule, DMII, HLD, pulmonary emphysema, aneurysm of ascending aorta without rupture, HTN, CAD, aortic valve regurgitation, diverticulosis, osteoarthritis, mild cerebral atrophy and history of TIA who presented to the ED with c/o heart palpitations and upper back pain. D dimer elevated. CTA chest neg for PE. stable mild thoracic aneurysm. HS trops x 2 normal. EKG NSR. TSH normal. cardio was consulted in ED. No further episodes this admission. Today he feels well and wishes to go home. telemetry and EKG this AM reviewed. no arrhythmias. His cardiology team will arrange OP nuclear stress test. Palpitations Ascending thoracic aortic aneurysm without rupture POA Telemetry benign, HS-troponin x 2 negative. EKG with indeterminate T wave inversions in the lateral leads, questionable L anterior fascicular block (appears new). Pt without chest pain. Repeat EKG in AM, check updated TTE. Prior TTE, 12/2024: EF 55-60%, normal LV wall motion, mild AVR, moderately dilated ascending aorta (4.4cm). D-dimer elevated however chest CTA negative for PE. Abd/pelv and chest CTA imaging without evidence of thoracic or abdominal aortic dissection. -Ascending thoracic aortic aneurysm measuring 4.8cm maximum diameter (change of 2mm since February 2024). HR and BP currently well-controlled. Renal cysts Noted on abd/pelv CTA: There are a few tiny cysts at the kidneys. Renal function stable, continue to monitor. Recommend routine (nonurgent) OP renal US for further eval -- can be arranged with PCP. DMII A1c 6.6% 1 mo ago, well-controlled on metformin. SSI protocol while inpatient. Monitor BSG checks ACHS. HTN Strive for goal BP <140/90 in setting of known ascending thoracic AA. Continue BB, lisinopril with routine BP checks. HLD, CAD Continue statin therapy. Update fasting lipid panel in AM. DVT Prophylaxis: SCDs/TEDs, SQ Lovenox Code Status: FULL CODE I spent a total of 39 minutes coordinating, documenting, and providing care for this patient excluding time spent in the performance of separately billed services. This included personally reviewing all current laboratories and imaging studies, medical reconciliation, outpatient chart review and discussion with specialists Notes For Next Care Provider Medication Changes From Visit no med changes. Admission HPI Per Admitting Provider Patient is a 70y/o M with PMHx significant for thyroid nodule, DMII, HLD, pulmonary emphysema, aneurysm of ascending aorta without rupture, HTN, CAD, aortic valve regurgitation, diverticulosis, osteoarthritis, mild cerebral atrophy and history of TIA who presented to the ED with c/o heart palpitations and upper back pain. Recently started on oral prednisone course for a suspected herniated disc in his back by his PCP. Started to develop palpitations after starting the prednisone. Discontinued the prednisone on because of this. Only took about 3 or 4 days' worth of prednisone. Has still been experiencing heart palpitations several times a day, primarily at rest, since stopping the prednisone. No chest pain or SOB with this. Also noticed that his BP was mildly elevated over the past few days. No recent changes to antiHTN regimen. Did not take any of his medications this morning. Has still be experiencing some mild upper back pain, described as achy and dull. Known history of an aneurysm of the ascending aorta. Follows with [facility] cardiothoracic surgery for monitoring. CT chest without contrast in February 2024 measuring 4.6cm maximum diameter, previously was 4.3cm maximum diameter in April 2015. Under observation. Last seen by cardiothoracic surgery in September 2024. Scheduled for repeat chest CT in February 2026. Discharge Exam Vitals and labs reviewed General: Well appearing, NAD HEENT: EOMI, PERRLA Neck: Supple Cardiac: RRR no rubs gallops or murmurs Lungs: CTA no rhonchi wheezing or rales Abd: S NT ND BS positive : Deffered MSK: Full ROM. No obvious deformities Ext: No Edema cyanosis Skin: Warm, Dry Neuro: AOx3 No focal deficits. Psych: Normal Mood Updated Medication List Medication Instructions Recorded Confirmed Type atorvastatin 40 mg tablet 40 mg PO DAILY 09/22/25 09/22/25 History lisinopril 2.5 mg tablet 2.5 mg PO DAILY 09/22/25 09/22/25 History metformin 500 mg tablet,extended 500 mg PO DAILY 09/22/25 09/22/25 History release 24 hr metoprolol succinate 25 mg 25 mg PO DAILY 09/22/25 09/22/25 History tablet,extended release 24 hr prednisone 20 mg tablet 40 mg PO QAM 09/22/25 09/22/25 History Hospital Stay Data Consultations 09/22/25 10:22 ED Decision to Admit Stat 09/22/25 11:44 Consult Cardiology Routine Diagnostic Imagining Performed 09/22/25 06:20 CTA abdomen pelvis w con [CT angio abdomen pelvis w con] Stat 09/22/25 07:18 CTA chest dissec wo/w con [CT angio chest dissec wo/w con] Stat Pending Results Patient Have Any Pending Studies at Discharge: No Discharge Instructions Given to Patient (Per Discharging Provider) Your bindery chief's office should call you tomorrow to schedule a stress test. if you don't hear from them, call them wednesday to schedule. Return to ED should your symptoms return. Please hold your metformin until wednesday as it can interact with the IV contrast you had done on wednesday. discuss the prednisone prescription with the doctor who prescribed it. Total Time Total Time Spent Total Time Spent (In Minutes): 39
--- NOTE | 2025-09-23 20:56 | Electrocardiogram Report ---
Test Reason : Blood Pressure : */* mmHG Vent. Rate : 60 BPM Atrial Rate : 60 BPM P-R Int : 194 ms QRS Dur : 112 ms QT Int : 408 ms P-R-T Axes : 23 -33 107 degrees QTcB Int : 408 ms Normal sinus rhythm Left axis deviation Minimal voltage criteria for LVH, may be normal variant ( Levar product ) T wave abnormality, consider lateral ischemia Abnormal ECG When compared with ECG of 02-Jun-2015 12:47, T wave inversion now evident in Lateral leads Confirmed by Mady Jeronimo ([id number]) on 09/23/2025 8:56:25 PM Referred By: Confirmed By: Mady Jeronimo
--- NOTE | 2025-09-23 21:02 | Electrocardiogram Report ---
Test Reason : Blood Pressure : */* mmHG Vent. Rate : 58 BPM Atrial Rate : 58 BPM P-R Int : 184 ms QRS Dur : 116 ms QT Int : 444 ms P-R-T Axes : 25 -45 116 degrees QTcB Int : 435 ms Sinus bradycardia Left anterior fascicular block Minimal voltage criteria for LVH, may be normal variant(Levar product) T wave abnormality, consider lateral ischemia Abnormal ECG When compared with ECG [id number] 06:15, No significant change was found Confirmed by Mady Jeronimo ([id number]) on 09/23/2025 9:02:08 PM Referred By: REFERRED SELF Confirmed By: Mady Jeronimo
--- NOTE | 2025-09-24 11:01 | Electrocardiogram Report ---
Test Reason : Blood Pressure : */* mmHG Vent. Rate : 54 BPM Atrial Rate : 54 BPM P-R Int : 206 ms QRS Dur : 112 ms QT Int : 470 ms P-R-T Axes : 2 -22 123 degrees QTcB Int : 445 ms Sinus bradycardia Minimal voltage criteria for LVH, may be normal variant ( Levar product ) Abnormal ECG When compared with ECG of 22-Sep-2025 09:02, (unconfirmed) Non-specific change in ST segment in Anterior leads Confirmed by Mady Jeronimo ([id number]) on 09/24/2025 11:01:22 AM Referred By: REFERRED SELF Confirmed By: Mady Jeronimo
== END 2025-09-23 10:09 | disposition home or self-care (01) ==
LOC: ED 06:05 → 2W 06:05